=== PATIENT | male | born 1960 | race Caucasian/White ===

== ENCOUNTER 2018-10-18 00:43 | Emergency (ER) | payer OTHER ==
[~2018-10-18] VITALS: Ht 182.9 cm; Wt 92.1 kg
[2018-10-18 00:47] VITALS: BP 135/87
--- NOTE | 2018-10-18 00:47 | NUR ---
TO BED # 08 AMBULATORY , REPORT GIVEN TO LAUREL BANEGAS
--- NOTE | 2018-10-18 01:07 | NUR ---
57 YO M BIB SELF CO NUMBNESS/TINGLING TO RIGHT HAND/WRIST X 3 DAYS. DENIES PAIN OF ANY KIND. DENIES ANY TRAUMA OR RECENT INJURY. -- CAP REFILL BRISK, >3 SECONDS. HAND IT APPLICATION ADMINISTRATOR STRONG, EQUAL BILAT. -- PMH: DENIES -- RX: DENIES
--- NOTE | 2018-10-18 01:15 | NUR ---
R WRIST BRACE WITH ABDUCTED THUMB PLACED AND FITTED ON PT. +CSM
[2018-10-18 01:20] VITALS: BP 135/87
== END 2018-10-18 01:20 | disposition home or self-care (01) ==
LOC: MED 00:43
DX: G62.9 Polyneuropathy, unspecified (principal)
CPT/HCPCS: 99283

== ENCOUNTER 2018-10-19 13:40 | Emergency (ER) | payer OTHER ==
[~2018-10-19] VITALS: Ht 182.9 cm; Wt 92.1 kg
[2018-10-19 13:40] VITALS: BP 152/100
--- NOTE | 2018-10-19 13:40 | NUR ---
PATIENT AMBULATED TO ER BED 7.
--- NOTE | 2018-10-19 13:50 | NUR ---
PATIENT PRESENTS TO ED WITH C/O R WRIST/HAND NUMBNESS, DENIES INJURY/TX WAS SEEN ON MONDAY AND GIVEN DX OF PINCHED NERVE. DENIES PAIN AT THIS TIME; PATIENT POSITIONED FOR COMFORT; HOB ELEVATED; BEDRAILS UP X2; BED DOWN. ER MD MADE AWARE OF PT STATUS.
--- NOTE | 2018-10-19 14:00 | NUR ---
Patient being evaluated by physician at bedside.
[2018-10-19] MEDS ORDERED: NACL 0.9% 1,000 ML IV ONE (14:10)
--- NOTE | 2018-10-19 14:20 | NUR ---
IV INSERTED TO LEFT AC, STARTED NS BOLUS, PT TOLERATED WELL.
[2018-10-19 14:30] LABS: BASOPHILS % (AUTO) 0.3 % (0.0-2.0); EOSINOPHILS # (AUTO) 0.1 K/uL (0-0.4); EOSINOPHILS % (AUTO) 0.7 % (0.0-4.0); HEMATOCRIT 45.2 % (36-52); HEMOGLOBIN 15.4 g/dL (12.0-18.0); LYMPHOCYTES # (AUTO) 1.2 K/uL (2.0-11.5); MEAN CORPUSCULAR HEMOGLOBIN 29 pg (27-31); MEAN CORPUSCULAR HGB CONC 34 g/dL (33-37); MEAN CORPUSCULAR VOLUME 86.4 fL (80-94); MONOCYTES # (AUTO) 0.5 K/uL (0.8-1.0); MONOCYTES % (AUTO) 6.3 % (1.7-9.3); NEUTROPHILS # (AUTO) 5.9 K/uL (1.8-7.7); NEUTROPHILS % (AUTO) 76.7 % (42.2-75.2); PLATELET COUNT (AUTO) 263 K/uL (140-450); RED BLOOD CELL COUNT(AUTO) 5.23 MIL/uL (4.20-6.10); RED CELL DISTRIBUTION WIDTH 13.7 % (11.6-13.7); WHITE BLOOD COUNT (AUTO) 7.7 K/uL (4.8-10.8)
[2018-10-19 14:41] LABS: ANION GAP 9.5 (8-16); CREATININE 0.9 mg/dL (0.7-1.3); POTASSIUM 3.5 mmol/L (3.5-5.1); TOTAL BILIRUBIN 0.5 mg/dL (0.0-1.0)
--- NOTE | 2018-10-19 15:20 | NUR ---
PT IS RESTING IN BED, NO S/S OF DISTRESS, STATED FEELING BETTER.
[2018-10-19] MEDS ORDERED: KETOROLAC 30 MG/ML VIAL IVP ONE (16:00)
--- NOTE | 2018-10-19 16:30 | NUR ---
PT IS ASLEEP IN BED, NO S/S OF DISTRESS, VSS.
--- NOTE | 2018-10-19 17:20 | NUR ---
CHECKED PT, ASLEEP IN BED, NO S/S OF DISTRESS.
[2018-10-19 18:13] VITALS: BP 135/86
--- NOTE | 2018-10-19 18:13 | NUR ---
Patient discharged with v/s stable. Written and verbal after care instructions given and explained. Patient alert, oriented and verbalized understanding of instructions. Ambulatory with steady gait. All questions addressed prior to discharge. ID band removed. Patient advised to follow up with PMD. Rx of dania [place] given. Patient educated on indication of medication including possible reaction and side effects. Opportunity to ask questions provided and answered.
== END 2018-10-19 18:13 | disposition home or self-care (01) ==
LOC: MED 13:40
DX: R51 Headache (principal)
CPT/HCPCS: 36415; 70450; 80053; 85025; 96374; 99284; J1885; J7030

== ENCOUNTER 2022-06-25 11:59 | Emergency (ER) | payer MEDICAID, OTHER ==
[~2022-06-25] VITALS: Ht 180.3 cm; Wt 100.0 kg
[2022-06-25 12:17] VITALS: BP 140/80
[2022-06-25] MEDS ORDERED: ACETAMINOPHEN EXTRA STRENGTH 500 MG TAB PO ONE (12:35)
[2022-06-25] MEDS ORDERED: IBUPROFEN 600 MG TAB PO ONE (12:35)
--- NOTE | 2022-06-25 13:00 | NUR ---
61/M WALKED IN C/O COLD S/SX 2DAYS, [place], COUGH AND RUNNY NOSE. AFEBRILE AT TRIAGE. VITALS STABLE. AAO4, AMBULATORY. NKA PMH: HTN, CVA
[2022-06-25] MEDS ORDERED: ACET-10509 PO (13:24)
[2022-06-25] MEDS ORDERED: IBUP-2213 PO (13:24)
== END 2022-06-25 14:10 | disposition home or self-care (01) ==
LOC: MED 11:59
DX: B34.9 Viral infection, unspecified (principal); Z20.822 Contact with and (suspected) exposure to COVID-19
CPT/HCPCS: 99283